=== PATIENT | female | born 1945 | race Asian ===

== ENCOUNTER 2016-03-23 12:14 | Emergency (ER) | payer MEDICARE, OTHER ==
[2016-03-23] MEDS ORDERED: OPTIRAY 350 100 ML VIAL HMH IV ONE (12:15)
[2016-03-23] MEDS ORDERED: SODIUM CHLORIDE 0.9% 1,000 ML ONE (12:36)
[2016-03-23] MEDS ORDERED: ONDANSETRON 4 MG VIAL ONE (23:24)
== END 2016-03-23 16:17 | disposition home or self-care (01) ==
LOC: ER 12:14
DX: K52.9 Noninfective gastroenteritis and colitis, unspecified (principal); Z79.899 Other long term (current) drug therapy
CPT/HCPCS: 36415; 71010; 74177; 80053; 81001; 82553; 83690; 84484; 85007; 85027; 85610; 85730; 87077; 87088; 87186; 93005; 96360; 96361; 99285; J2405; Q9967